=== PATIENT | male | born 1995 | race African-American/Black ===

== ENCOUNTER 2020-12-31 15:59 | Emergency (ER) | payer OTHER ==
[~2020-12-31] VITALS: Ht 180.3 cm; Wt 63.5 kg
[~2020-12-31 15:59] MED LIST: DIPHENHIST50 MG PO; NORCO 5-325 TA1 EACH PO; PENICILLIN VK500 M1 PO; PENICILLIN VK500 MG PO
[2020-12-31] MEDS ORDERED: AMOXICILLIN 50500 MG PO ×2 (17:26)
[2020-12-31 18:15] VITALS: BP 118/75
== END 2020-12-31 18:18 | disposition home or self-care (01) ==
LOC: ER 15:59
DX: R09.81 Nasal congestion (principal); K08.89 Other specified disorders of teeth and supporting structures; H66.93 Otitis media, unspecified, bilateral; Z79.899 Other long term (current) drug therapy; Z91.09 Other allergy status, other than to drugs and biological substances

== ENCOUNTER 2021-04-08 19:26 | Emergency (ER) | payer OTHER ==
[~2021-04-08] VITALS: Ht 175.3 cm; Wt 63.5 kg
[~2021-04-08 19:26] MED LIST changes: +AMOXICILLIN 50500 MG PO
[2021-04-08] MEDS ORDERED: NOHOMEMEDICATIONS (19:42)
[2021-04-08 21:12] LABS: ABSOLUTE NEUTROPHILS 3.3 thou/uL (1.4-8.2); BASOPHILS 0.9 % (0.0-2.0); EOSINOPHILS 5.5 % (0.0-3.0); HEMATOCRIT 38.6 % (42.0-52.0); LYMPHOCYTES 33.4 % (24.0-44.0); MCH 32.7 pg (26.0-34.0); MCHC 33.7 g/dL (28.0-37.0); MCV 97.2 fL (80.0-100.0); MONOCYTES 9.6 % (1.0-8.0); PLATELET COUNT 218 thou/uL (150-400); POLYS 50.6 % (36.0-66.0); RBC 3.97 mil/uL (4.50-6.00); RDW 13.7 % (10.5-14.5); WBC 6.6 thou/uL (4.0-11.0)
[2021-04-08 21:18] LABS: ANION GAP 7 mmol/L (7-16); BUN 8 mg/dL (7-18); CALCIUM 8.6 mg/dL (8.5-10.1); CHLORIDE 108 mmol/L (98-107); CO2 30 mmol/L (21-32); CREATININE 1.3 mg/dL (0.7-1.3); GLUCOSE 98 mg/dL (74-106); POTASSIUM 3.7 mmol/L (3.5-5.1); SODIUM 145 mmol/L (136-145)
[2021-04-08 21:27] LABS: ALBUMIN 3.9 g/dL (3.4-5.0); SGOT 13 U/L (15-37); SGPT 24 U/L (16-63); TOTAL BILIRUBIN 0.3 mg/dL (0.2-1.0); TROPONIN-I <0.06 ng/mL (<0.06)
[2021-04-08] MEDS ORDERED: MECLIZINE HCL25 M1 PO (21:45)
[2021-04-08 21:59] VITALS: BP 130/70
--- NOTE | 2021-04-10 09:23 | EKG ---
[place] [address] [facility] [place] [address] ELECTROCARDIOGRAM REPORT Name: FLORES YAÑEZ Room #: DEP BRUNO Mann#: [id number] Admission: 04/08/21 Attend Phys: Discharge: 04/08/21 Date of : [birth year] Report #: [id number] [facility] ED Test Date: 2021-04-08 Test Time: 20:35:29 Pat Name: FLORES YAÑEZ Department: Room: Gender: Recycling Technician: jean : 1995 Requested By: Angelito Mcfarland Order Number: [id number] MD: Tolu Young Measurements Intervals [place] Rate: 75 P: 77 FL: 154 QRS: 73 QRSD: 84 T: 25 QT: 367 QTc: 410 Interpretive Statements Sinus rhythm Poor septal R wave progression No previous ECG available for comparison Electronically Signed On 04-10-2021 9:23:43 CDT by Tolu Young [email or web address] <ELECTRONICALLY SIGNED> By: Tolu Young MD, [facility] 04/10/21922 34 34 Tolu Young MD, FACC /EPI
== END 2021-04-08 21:59 | disposition home or self-care (01) ==
LOC: ER 19:26
PROVIDERS: Emergency Medicine
DX: R42 Dizziness and giddiness (principal); F12.90 Cannabis use, unspecified, uncomplicated; Z79.891 Long term (current) use of opiate analgesic; Z79.899 Other long term (current) drug therapy; Z91.09 Other allergy status, other than to drugs and biological substances